=== PATIENT | female | born 1995 | race African-American/Black ===

== ENCOUNTER 2019-02-12 22:36 | Inpatient (IN) | payer OTHER, SELFPAY ==
[2019-02-12] MEDS ORDERED: Lidocaine 1% 50 ML MDV ONE (23:09)
[2019-02-13] MEDS ORDERED: Docusate Sodium 100 MG Cap PO PRN (00:02)
[2019-02-13] MEDS ORDERED: Acetaminophen 325 MG Tab PO PRN (00:02)
[2019-02-13] MEDS ORDERED: Witch Hazel Medicated Pads 40/Jar TOP PRN (00:02)
[2019-02-13] MEDS ORDERED: Benzocaine/Menthol 20%-0.5% Spray 56 GM Canister TOP PRN (00:02)
[2019-02-13] MEDS ORDERED: Simethicone 80 MG Tab.Chew PO PRN (00:02)
--- NOTE | 2019-02-13 00:17 | PCM.DEL ---
L & D Note - General Info Date of Service: 02/12/19 Mother's Due Date: 02/19/19 - Delivery Note Labor: Spontaneous Delivery Outcome: Livebirth Infant Delivery Method: Spontaneous Vaginal Delivery-Single (Precipitous delivery at home.) Delivery Mode: Spontaneous Presentation: Vertex Anesthesia Type: None Laceration: 2nd Degree Suture type: Vicryl Suture size: 3-0 Placenta: Intact, Spontaneous Cord: 3 Vessels Resuscitation Needed: No [place]: Warmed, Roll Used Delivery Comments (Free Text/Narrative):: Patient started having some contractions at home at about 1500 on 02/12/19. Her was at work. They started getting intense about 2100 and she was feeling more pressure. She had called the hospital saying that she was planning on coming in at about 2129. She had a big gush of clearish yellow fluid at about 0 and then felt baby's head coming. She pushed about 4 times and then baby was out. She believes time of delivery was 2144. She dried baby off with a towel that she had and put baby on her chest to keep her warm and called Labor and Delivery and we sent the ambulance out to get her. She reports that baby cried right away. Placenta delivered spontaneously at home. She is GBS positive, but otherwise normal . Baby was breech and then transverse presentation and I had DR. Mcwilliams do an ECV on 01/29/19. When she arrived by ambulance, baby girl was on her chest, skin to skin and in no distress. Fundus was firm, but I did express a good amount of blood clots. I examined the perineum and there was a second degree perineal laceration. I infiltrated the area with 1% lidocaine and then used 3-0 Vicryl to suture in the usual manner. After the repair, I did a bimanual exam and expressed more blood clots. Vital signs were stable. I examined the placenta and it was intact and 3 vessels in the cord. - General Info Date of Service: 02/12/19 Functional Status: Reports: Pain Controlled, Ambulating - Review of Systems General: Reports: No Symptoms HEENT: Reports: No Symptoms Pulmonary: Reports: No Symptoms Cardiovascular: Reports: No Symptoms Gastrointestinal: Reports: No Symptoms Genitourinary: Reports: No Symptoms Musculoskeletal: Reports: No Symptoms Skin: Reports: No Symptoms Neurological: Reports: No Symptoms Psychiatric: Reports: No Symptoms - Patient Data Med Orders - Current: Current Medications Discontinued Medications Lidocaine HCl (Xylocaine 1%) Confirm Administered Dose 50 ml .ROUTE .STK-MED ONE Stop: 02/12/19 23:10 - Exam General: Alert, Oriented, Cooperative, No Acute Distress HEENT: Pupils Reactive, Mucous Membr. Moist/[place] Neck: Supple Lungs: Normal Respiratory Effort Cardiovascular: Regular Rate, Regular Rhythm GI/Abdominal Exam: Soft, No Distention (Female) Exam: Vaginal Bleeding Back Exam: Normal Inspection, Full Range of Motion Extremities: Normal Inspection, No Pedal Edema Skin: Warm, Dry, Intact Psy/Mental Status: Alert, Normal Affect, Normal Mood - Problem List & Annotations (1) Spontaneous vaginal delivery SNOMED Code(s): 330185044 Code(s): O80 - ENCOUNTER FOR FULL-TERM UNCOMPLICATED DELIVERY Status: Acute Current Visit: Yes (2) Group B streptococcal carriage complicating SNOMED Code(s): 555935519807552 Code(s): O99.820 - STREPTOCOCCUS B CARRIER STATE COMPLICATING Status: Acute Current Visit: Yes (3) 39 weeks gestation of SNOMED Code(s): 98195664 Code(s): Z3A.39 - 39 WEEKS GESTATION OF Status: Acute Current Visit: Yes - Problem List Review Problem List Initiated/Reviewed/Updated: Yes - My Orders Last 24 Hours: My Active Orders 02/13/19 00:02 Patient Status [ADT] Routine Activity as Tolerated [RC] PER UNIT ROUTINE Cooling Warming Measures [RC] ASDIRECTED May Shower [RC] ASDIRECTED Up ad Maritza [RC] ASDIRECTED Vital Signs [RC] ASDIRECTED Acetaminophen [Tylenol] 650 mg PO Q4H PRN Benzocaine/Menthol [Dermoplast Pain Relief [place]] See Dose Instructions TOP ASDIRECTED PRN Docusate Sodium [Colace] 100 mg PO BID PRN Ibuprofen [Motrin] 600 mg PO Q4H PRN Simethicone 80 mg PO Q4H PRN Witch Keena [Tucks] 1 pad TOP ASDIRECTED PRN Assess Lochia [WOMSER] Per Unit Routine Assess Uterine Involution [WOMSER] Per Unit Routine Breast Pump [WOMSER] Per Unit Routine Medication Administration Instruction [OM.PC] Routine Perineal Care [OM.PC] Per Unit Routine Sitz Bath [OM.PC] Per Unit Routine Resuscitation Status Routine 02/13/19 00:15 Heat Therapy [OM.PC] PRN 02/13/19 05:11 CBC W/O DIFF,HEMOGRAM [HEME] AM 02/13/19 Breakfast Regular Diet [DIET] 02/14/19 00:15 Heat Therapy [OM.PC] PRN - Assessment Assessment:: Precipitous vaginal delivery at home and then brought to the hospital by ambulance. She is GBS positive. Placenta delivered spontaneously at home and was intact. Bleeding is minimal at this time, but some clots were expressed from the uterus. She had a second degree perineal laceration that was repaired here on her arrival. She plans to breastfeed. - Plan Plan:: 1. Routine care. Watch bleeding and treat with pitocin if needed. At this time, her fundus is firm and bleeding is minimal. Will check CBC in am. 2. support and education.
--- NOTE | 2019-02-13 00:56 | PCM.LDHP ---
L&D History of Present Illness - General Date of Service: 02/12/19 Admit Problem/Dx: Patient Status Order with Admit Dx/Problem 02/13/19 00:02 Patient Status [ADT] Routine Admission Diagnosis/Problem Admission Diagnosis/Problem Spontaneous vaginal delivery Source of Information: Patient History Limitations: Reports: No Limitations - History of Present Illness Introduction:: 23 yo admitted after a precipitous spontaneous vaginal delivery at home. She had started having some contractions about 1500 after her went to work. THey started getting more intense with pelvic pressure at 2100 and she called the hospital to advise that she was going to be coming in, but then she had SROM at home at about 2140 and baby delivered spontaneously at 2145. She delivered a baby girl and then the placenta also delivered spontaneously. She did call L&D during the process and we sent an ambulance to bring her to the hospital. Her was complicated by breech presentation and then transverse and ECV successfully performed by Dr. Mcwilliams on 01/29/19. She is GBS positive and blood type O positive. Infectious disease testing all negative. She did have a low TSH in early , but that normalized. 1 hour glucola was normal. Her first baby delivered with spontaneous vaginal delivery with spontaneous labor and she had a baby boy. - Related Data Allergies/Adverse Reactions: Allergies Allergy/AdvReac Type Severity Reaction Status Date / Time No Known Allergies Allergy Verified 01/29/19 12:03 Home Medications: Home Meds Pnv No.95/Ferrous Fum/Folic AC [ Caplet] 1 tab DAILY 01/29/19 [History] Past Medical History - Past Health History Medical/Surgical History: Denies Medical/Surgical History : 2 Para: 2 Social & Family History - Tobacco Use Smoking Status *Q: Never Smoker Tobacco Use Within Last Twelve Months: No - Alcohol Use Alcohol Use History: No - Living Situation & Occupation Living situation: Reports: H&P Review of Systems - Review of Systems: Review Of Systems: See Below General: Reports: No Symptoms HEENT: Reports: No Symptoms Pulmonary: Reports: No Symptoms Cardiovascular: Reports: No Symptoms Gastrointestinal: Reports: No Symptoms Genitourinary: Reports: Other (Uterine cramping) Musculoskeletal: Reports: No Symptoms Skin: Reports: No Symptoms Psychiatric: Reports: No Symptoms Neurological: Reports: No Symptoms Hematologic/Lymphatic: Reports: No Symptoms Immunologic: Reports: No Symptoms L&D Exam - Exam Exam: See Below - OB Specific Presentation: Vertex - Exam General: Alert, Oriented, Cooperative HEENT: Mucosa Moist & [place], Pupils Equal Neck: Supple, Trachea Midline Lungs: Normal Respiratory Effort Cardiovascular: Regular Rate, Regular Rhythm GI/Abdominal Exam: Soft Rectal Exam: Deferred Genitourinary: Vaginal bleeding, Other (Uterus is firm, with massage, a moderate amount of blood clot expressed.) Back Exam: Normal Inspection, Full Range of Motion Extremities: Normal Inspection, No Pedal Edema Skin: Warm, Dry, Intact Psychiatric: Alert, Normal Affect, Normal Mood - Problem List (1) Spontaneous vaginal delivery SNOMED Code(s): 533213736 ICD Code: O80 - ENCOUNTER FOR FULL-TERM UNCOMPLICATED DELIVERY Status: Acute Current Visit: Yes (2) Group B streptococcal carriage complicating SNOMED Code(s): 054559070285390 ICD Code: O99.820 - STREPTOCOCCUS B CARRIER STATE COMPLICATING Status: Acute Current Visit: Yes (3) 39 weeks gestation of SNOMED Code(s): 18951285 ICD Code: Z3A.39 - 39 WEEKS GESTATION OF Status: Acute Current Visit: Yes Problem List Initiated/Reviewed/Updated: Yes Orders Last 24hrs: Active Orders 24 hr Category Date Time Status Patient Status [ADT] Routine ADT 02/13/19 00:02 Active Activity as Tolerated [RC] PER UNIT ROUTINE Care 02/13/19 00:02 Active Cooling Warming Measures [RC] ASDIRECTED Care 02/13/19 00:02 Active May Shower [RC] ASDIRECTED Care 02/13/19 00:02 Active Up ad Maritza [RC] ASDIRECTED Care 02/13/19 00:02 Active Vital Signs [RC] ASDIRECTED Care 02/13/19 00:02 Active Regular Diet [DIET] Diet 02/13/19 Breakfast Active CBC W/O DIFF,HEMOGRAM [HEME] AM Lab 02/13/19 05:11 Ordered Acetaminophen [Tylenol] Med 02/13/19 00:02 Active 650 mg PO Q4H PRN Benzocaine/Menthol [Dermoplast Pain Relief [place]] Med 02/13/19 00:02 Active See Dose Instructions TOP ASDIRECTED PRN Docusate Sodium [Colace] Med 02/13/19 00:02 Active 100 mg PO BID PRN Ibuprofen [Motrin] Med 02/13/19 00:02 Active 600 mg PO Q4H PRN Simethicone Med 02/13/19 00:02 Active 80 mg PO Q4H PRN Witch Keena [Tucks] Med 02/13/19 00:02 Active 1 pad TOP ASDIRECTED PRN Assess Lochia [WOMSER] Per Unit Routine Oth 02/13/19 00:02 Ordered Assess Uterine Involution [WOMSER] Per Unit Routine Oth 02/13/19 00:02 Ordered Breast Pump [WOMSER] Per Unit Routine Oth 02/13/19 00:02 Ordered Heat Therapy [OM.PC] PRN Oth 02/13/19 00:15 Ordered Heat Therapy [OM.PC] PRN Oth 02/14/19 00:15 Ordered Medication Administration Instruction [OM.PC] Routine Oth 02/13/19 00:02 Ordered Perineal Care [OM.PC] Per Unit Routine Oth 02/13/19 00:02 Ordered Sitz Bath [OM.PC] Per Unit Routine Oth 02/13/19 00:02 Ordered Resuscitation Status Routine Resus Stat 02/13/19 00:02 Ordered Medication Orders Acetaminophen (Tylenol) 650 mg PO Q4H PRN PRN Reason: mild pain or fever Benzocaine/Menthol (Dermoplast Pain Relief [place]) 0 gm TOP ASDIRECTED PRN PRN Reason: Perineal Comfort Measure Docusate Sodium (Colace) 100 mg PO BID PRN PRN Reason: Constipation Ibuprofen (Motrin) 600 mg PO Q4H PRN PRN Reason: Mild pain or fever Simethicone (Simethicone) 80 mg PO Q4H PRN PRN Reason: Gas Witch Keena (Tucks) 1 pad TOP ASDIRECTED PRN PRN Reason: Perineal Comfort Measure Assessment/Plan Comment:: 1. Routine care. Watch bleeding and treat with pitocin if needed. At this time, her fundus is firm and bleeding is minimal. Will check CBC in am. 2. support and education.
[2019-02-13] MEDS: Ibuprofen 600 MG Tab PO PRN ×3 (01:50→23:28)
--- NOTE | 2019-02-13 10:04 | PCM.PN ---
- General Info Date of Service: 02/13/19 Admission Dx/Problem (Free Text): Patient Status Order with Admit Dx/Problem 02/13/19 00:02 Patient Status [ADT] Routine Admission Diagnosis/Problem Admission Diagnosis/Problem Spontaneous vaginal delivery Functional Status: Reports: Pain Controlled, Tolerating Diet, Ambulating, Urinating - Review of Systems General: Reports: No Symptoms HEENT: Reports: No Symptoms Pulmonary: Reports: No Symptoms Cardiovascular: Reports: No Symptoms Gastrointestinal: Reports: No Symptoms Genitourinary: Reports: No Symptoms Musculoskeletal: Reports: No Symptoms Skin: Reports: No Symptoms Neurological: Reports: No Symptoms Psychiatric: Reports: No Symptoms - Patient Data Vitals - Most Recent: Last Vital Signs Temp 36.9 C 02/13/19 08:37 Pulse 98 02/13/19 08:37 Resp 14 02/13/19 08:37 BP 125/63 02/13/19 08:37 Pulse Ox 100 02/13/19 08:37 Weight - Most Recent: 95.254 kg Lab Results Last 24 Hours: Laboratory Results - last 24 hr 02/13/19 Range/Units 05:47 WBC 11.39 H (3.98-10.04) K/mm3 RBC 3.66 L (3.98-5.22) M/mm3 Hgb 11.5 (11.2-15.7) gm/dl Hct 33.5 L (34.1-44.9) % MCV 91.5 (79.4-94.8) fl MCH 31.4 (25.6-32.2) pg MCHC 34.3 (32.2-35.5) g/dl RDW Std Deviation 39.8 (36.4-46.3) fL Plt Count 225 (182-369) K/mm3 MPV 9.7 (9.4-12.3) fl Med Orders - Current: Current Medications Acetaminophen (Tylenol) 650 mg PO Q4H PRN PRN Reason: mild pain or fever Benzocaine/Menthol (Dermoplast Pain Relief [place]) 0 gm TOP ASDIRECTED PRN PRN Reason: Perineal Comfort Measure Last Admin: 02/13/19 01:49 Dose: 1 canister Docusate Sodium (Colace) 100 mg PO BID PRN PRN Reason: Constipation Ibuprofen (Motrin) 600 mg PO Q4H PRN PRN Reason: Mild pain or fever Last Admin: 02/13/19 01:50 Dose: 600 mg Simethicone (Simethicone) 80 mg PO Q4H PRN PRN Reason: Gas Witch Keena (Tucks) 1 pad TOP ASDIRECTED PRN PRN Reason: Perineal Comfort Measure Last Admin: 02/13/19 01:49 Dose: 1 tub Discontinued Medications Lidocaine HCl (Xylocaine 1%) Confirm Administered Dose 50 ml .ROUTE .STK-MED ONE Stop: 02/12/19 23:10 Last Admin: 02/13/19 08:49 Dose: 50 ml - Exam General: Alert, Oriented HEENT: Mucous Membr. Moist/[place] Neck: Supple Lungs: Normal Respiratory Effort Cardiovascular: Regular Rate, Regular Rhythm GI/Abdominal Exam: Normal Bowel Sounds, No Distention (Female) Exam: Normal External Exam, Fundal Height (Uterus is firm at the umbilicus. ), Vaginal Bleeding Back Exam: Normal Inspection, Full Range of Motion Extremities: Normal Inspection, Non-Tender, No Pedal Edema Skin: Warm, Dry, Intact Neurological: No New Focal Deficit Psy/Mental Status: Alert, Normal Affect, Normal Mood - Problem List & Annotations (1) Spontaneous vaginal delivery SNOMED Code(s): 978411930 Code(s): O80 - ENCOUNTER FOR FULL-TERM UNCOMPLICATED DELIVERY Status: Acute Current Visit: Yes (2) Group B streptococcal carriage complicating SNOMED Code(s): 991621818628743 Code(s): O99.820 - STREPTOCOCCUS B CARRIER STATE COMPLICATING Status: Acute Current Visit: Yes (3) 39 weeks gestation of SNOMED Code(s): 91077871 Code(s): Z3A.39 - 39 WEEKS GESTATION OF Status: Acute Current Visit: Yes - Problem List Review Problem List Initiated/Reviewed/Updated: Yes - My Orders Last 24 Hours: My Active Orders 02/13/19 00:02 Patient Status [ADT] Routine Activity as Tolerated [RC] PER UNIT ROUTINE May Shower [RC] ASDIRECTED Up ad Maritza [RC] ASDIRECTED Vital Signs [RC] 21,03,09,15 Acetaminophen [Tylenol] 650 mg PO Q4H PRN Benzocaine/Menthol [Dermoplast Pain Relief [place]] See Dose Instructions TOP ASDIRECTED PRN Docusate Sodium [Colace] 100 mg PO BID PRN Ibuprofen [Motrin] 600 mg PO Q4H PRN Simethicone 80 mg PO Q4H PRN Witch Keena [Tucks] 1 pad TOP ASDIRECTED PRN Assess Lochia [WOMSER] Per Unit Routine Assess Uterine Involution [WOMSER] Per Unit Routine Breast Pump [WOMSER] Per Unit Routine Medication Administration Instruction [OM.PC] Routine Perineal Care [OM.PC] Per Unit Routine Sitz Bath [OM.PC] Per Unit Routine Resuscitation Status Routine 02/13/19 00:15 Heat Therapy [OM.PC] PRN 02/13/19 Breakfast Regular Diet [DIET] 02/14/19 00:15 Heat Therapy [OM.PC] PRN - Assessment Assessment:: Precipitous vaginal delivery at home and then brought to the hospital by ambulance. She is GBS positive. Placenta delivered spontaneously at home and was intact. Bleeding is minimal at this time, but some clots were expressed from the uterus. She had a second degree perineal laceration that was repaired here on her arrival. She plans to breastfeed. 02/13/19: Cramping controlled with ibuprofen, bleeding is slowing. Voiding well. Baby has nursed once at 0400, but was cool and pretty sleepy until then. - Plan Plan:: 1. Routine care. Watch bleeding and treat with pitocin if needed. At this time, her fundus is firm and bleeding is minimal. Will check CBC in am. 2. support and education. 02/13/19: 1. continue routine care. CBC shows Hgb 11.5. 2. support and education.
--- NOTE | 2019-02-14 08:40 | PCM48HPAN ---
Post Anesthesia Note - EVALUATION WITHIN 48HRS OF ANESTHETIC Vital Signs in Normal Range: Yes Patient Participated in Evaluation: Yes Respiratory Function Stable: Yes Airway Patent: Yes Cardiovascular Function Stable: Yes Hydration Status Stable: Yes Pain Control Satisfactory: Yes Nausea and Vomiting Control Satisfactory: Yes Mental Status Recovered: Yes Vital Signs: Last Vital Signs Temp 36.7 C 02/14/19 02:29 Pulse 81 02/14/19 02:29 Resp 16 02/14/19 02:29 BP 108/69 02/14/19 02:29 Pulse Ox 96 02/14/19 02:29 - COMMENTS/OBSERVATIONS Free Text/Narrative:: no anesthesia complications noted
--- NOTE | 2019-02-14 08:53 | PCM.DCSUM1 ---
Discharge Summary - Hospital Course Free Text/Narrative:: 3 yo admitted after a precipitous spontaneous vaginal delivery at home. She had started having some contractions about 1500 after her went to work. THey started getting more intense with pelvic pressure at 2100 and she called the hospital to advise that she was going to be coming in, but then she had SROM at home at about 2140 and baby delivered spontaneously at 2145. She delivered a baby girl and then the placenta also delivered spontaneously. She did call L&D during the process and we sent an ambulance to bring her to the hospital. Her was complicated by breech presentation and then transverse and ECV successfully performed by Dr. Mcwilliams on 01/29/19. She is GBS positive and blood type O positive. Infectious disease testing all negative. She did have a low TSH in early , but that normalized. 1 hour glucola was normal. Her first baby delivered with spontaneous vaginal delivery with spontaneous labor and she had a baby boy. She did have a second degree perineal laceration that I discovered on exam when she presented to the hospital and it was repaired in the usual manner with 3-0 vicryl. Placenta was intact. Her bleeding was moderate and has decreased during her hospital stay. She has been using ibuprofen 600 mg for uterine cramping and that has been helping. She has been ambulating and voiding well and has had a good appetite. She has been waking baby up to breastfeed every 2 hours and baby has been nursing well. Diagnosis: Stroke: No Modified [place] Scale: No Symptoms at All Modified [place] Scale Score: 0 - Discharge Data Discharge Date: 02/14/19 Discharge Disposition: Home, Self-Care 01 Condition: Good - Referral to Home Health Primary Care Physician: Linda Johnston MD - Discharge Diagnosis/Problem(s) (1) Spontaneous vaginal delivery SNOMED Code(s): 313270006 ICD Code: O80 - ENCOUNTER FOR FULL-TERM UNCOMPLICATED DELIVERY Status: Acute Current Visit: Yes (2) Group B streptococcal carriage complicating SNOMED Code(s): 684028400936675 ICD Code: O99.820 - STREPTOCOCCUS B CARRIER STATE COMPLICATING Status: Acute Current Visit: Yes (3) 39 weeks gestation of SNOMED Code(s): 93839663 ICD Code: Z3A.39 - 39 WEEKS GESTATION OF Status: Acute Current Visit: Yes (4) Mother currently breast-feeding SNOMED Code(s): 528305900 ICD Code: [id number] - Status: Acute Current Visit: Yes - Patient Instructions Diet: Regular Diet as Tolerated Activity: As Tolerated Driving: May Drive Today Showering/Bathing: May Shower Notify Provider of: Fever, Increased Pain, Swelling and Redness, Drainage, Nausea and/or Vomiting - Discharge Plan *PRESCRIPTION DRUG MONITORING PROGRAM REVIEWED*: Not Applicable *COPY OF PRESCRIPTION DRUG MONITORING REPORT IN PATIENT CROW: Not Applicable Home Medications: Home Meds Pnv No.95/Ferrous Fum/Folic AC [ Caplet] 1 tab DAILY 01/29/19 [History] Acetaminophen [Tylenol] 650 mg PO Q4H PRN tablet 02/14/19 [Rx] Benzocaine/Menthol [Dermoplast Pain Relief [place]] 1 applic TOP ASDIRECTED PRN canister 02/14/19 [Rx] Docusate Sodium [Colace] 100 mg PO BID PRN cap 02/14/19 [Rx] Ibuprofen [Motrin] 600 mg PO Q4H PRN tablet 02/14/19 [Rx] Witch Keena [Tucks] 1 pad TOP ASDIRECTED PRN pad 02/14/19 [Rx] Oxygen Therapy Mode: Room Air Patient Handouts: Vaginal Delivery, Care After - Discharge Summary/Plan Comment DC Time >30 min.: No Discharge Summary/Plan Comment: 23 yo had a precipitous at home at 39 weeks and was then brought to the hospital with her baby by ambulance. She had a second degree perineal laceration that I repaired. Her placenta delivered spontaneously at home and I examined it and it appeared intact. Her fundus was firm and bleeding minimal to moderate. She has done well and will be discharged with routine instructions. She is and that has been going well. Continue to nurse baby. She will continue her vitamin. I will follow up with her in the clinic in 4-6 weeks. - General Info Date of Service: 02/14/19 Admission Dx/Problem (Free Text: Patient Status Order with Admit Dx/Problem 02/13/19 00:02 Patient Status [ADT] Routine Admission Diagnosis/Problem Admission Diagnosis/Problem Spontaneous vaginal delivery Functional Status: Reports: Pain Controlled, Tolerating Diet, Ambulating, Urinating - Review of Systems General: Reports: No Symptoms HEENT: Reports: No Symptoms Pulmonary: Reports: No Symptoms Cardiovascular: Reports: No Symptoms Gastrointestinal: Reports: No Symptoms Genitourinary: Reports: No Symptoms Musculoskeletal: Reports: No Symptoms Skin: Reports: No Symptoms Neurological: Reports: No Symptoms Psychiatric: Reports: No Symptoms - Patient Data Vitals - Most Recent: Last Vital Signs Temp 36.7 C 02/14/19 02:29 Pulse 81 02/14/19 02:29 Resp 16 02/14/19 02:29 BP 108/69 02/14/19 02:29 Pulse Ox 96 02/14/19 02:29 Weight - Most Recent: 95.254 kg I&O - Last 24 hours: Intake & Output 02/13/19 02/14/19 02/14/19 22:59 06:59 14:59 Intake Total 360 Balance 360 Med Orders - Current: Current Medications Acetaminophen (Tylenol) 650 mg PO Q4H PRN PRN Reason: mild pain or fever Benzocaine/Menthol (Dermoplast Pain Relief [place]) 0 gm TOP ASDIRECTED PRN PRN Reason: Perineal Comfort Measure Last Admin: 02/13/19 01:49 Dose: 1 canister Docusate Sodium (Colace) 100 mg PO BID PRN PRN Reason: Constipation Last Admin: 02/13/19 23:28 Dose: 100 mg Ibuprofen (Motrin) 600 mg PO Q4H PRN PRN Reason: Mild pain or fever Last Admin: 02/13/19 23:28 Dose: 600 mg Simethicone (Simethicone) 80 mg PO Q4H PRN PRN Reason: Gas Witch Keena (Tucks) 1 pad TOP ASDIRECTED PRN PRN Reason: Perineal Comfort Measure Last Admin: 02/13/19 01:49 Dose: 1 tub Discontinued Medications Lidocaine HCl (Xylocaine 1%) Confirm Administered Dose 50 ml .ROUTE .STK-MED ONE Stop: 02/12/19 23:10 Last Admin: 02/13/19 08:49 Dose: 50 ml - Exam General: Reports: Alert, Oriented, Cooperative, No Acute Distress HEENT: Reports: Pupils Equal, Pupils Reactive, Mucous Membr. Moist/[place] Neck: Reports: Supple Lungs: Reports: Normal Respiratory Effort Cardiovascular: Reports: Regular Rate, Regular Rhythm GI/Abdominal Exam: Normal Bowel Sounds (Female) Exam: Normal External Exam, Fundal Height (Fundus was initially at the umbilicus, but came down to 2 fingers below U with massage), Vaginal Bleeding Rectal (Female) Exam: Deferred Back Exam: Reports: Normal Inspection, Full Range of Motion Extremities: Normal Inspection, Normal Range of Motion, No Pedal Edema Skin: Reports: Warm, Dry, Intact Wound/Incisions: Reports: Healing Well Neurological: Reports: No New Focal Deficit Psy/Mental Status: Reports: Alert, Normal Affect, Normal Mood
[2019-02-14] MEDS: Ibuprofen 600 MG Tab PO PRN (20:17)
== END 2019-02-14 23:30 | disposition home or self-care (01) | DRG 807 ==
LOC: JD.OB 22:36
PROVIDERS: ADMIT Family Medicine; ATTEND Family Medicine
PROC: 10E0XZZ Delivery of Products of Conception, External Approach (ICD-10-PCS; principal; 2019-02-12)
DX: O62.3 Precipitate labor (principal); Z37.0 Single live birth; O99.824 Streptococcus B carrier state complicating childbirth; Z3A.39 39 weeks gestation of pregnancy; Z79.899 Other long term (current) drug therapy; O70.1 Second degree perineal laceration during delivery
CPT/HCPCS: 36415; 85027; A9270-GY; J2001

== ENCOUNTER 2020-09-08 09:32 | Emergency (ER) | payer OTHER, SELFPAY ==
[2020-09-08] MEDS ORDERED: Sodium Chloride 0.9% 10 ML Syringe FLUSH PRN (10:02)
[2020-09-08] MEDS ORDERED: methylPREDNISolone Sodium Succinate 125 MG/2 ML SDV IVPUSH ONE (10:03)
[2020-09-08] MEDS ORDERED: Ketorolac 30 MG/ML SDV IVPUSH ONE (10:04)
--- NOTE | 2020-09-08 11:38 | EDM.PDOC ---
ED HPI GENERAL MEDICAL PROBLEM - General Chief Complaint: ENT Problem Stated Complaint: CHEST PAIN/ COUGHING UP BLOOD Time Seen by Provider: 09/08/20 09:41 Source of Information: Reports: Patient History Limitations: Reports: No Limitations - History of Present Illness INITIAL COMMENTS - FREE TEXT/NARRATIVE: The patient presents with a sore throat and vomiting blood. When she went to bed last night she felt fine. This morning she woke up with sore throat and swelling. She also had some nausea and vomiting dome blood. She feels some shortness of breath. She has no fever, chills, cough, congestion, runny nose, or chest pain. She has not been around anyone who is sick. She has no history of strep throat. She has no allergies. 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: Social & Family History - Tobacco Use Tobacco Use Status *Q: Never Tobacco User Second Hand Smoke Exposure: No - Caffeine Use Caffeine Use: Reports: None - Recreational Drug Use Recreational Drug Use: No - Living Situation & Occupation Living situation: Reports: ED ROS ENT - Review of Systems Review Of Systems: See Below Constitutional: Reports: No Symptoms HEENT: Reports: Throat Pain, Throat Swelling Respiratory: Reports: No Symptoms Cardiovascular: Reports: No Symptoms Endocrine: Reports: No Symptoms GI/Abdominal: Reports: No Symptoms : Reports: No Symptoms ED EXAM, ENT - Physical Exam Exam: See Below Exam Limited By: No Limitations General Appearance: Alert, No Apparent Distress Ears: Normal External Exam Mouth/Throat: Other (Uvula has edema and the tip has a scab where there has been some bleeding) Head: Atraumatic, Normocephalic Neck: Normal Inspection, Supple, Non-Tender Respiratory/Chest: No Respiratory Distress, Lungs Clear, Normal Breath Sounds Cardiovascular: Regular Rate, Rhythm, No Edema, No Murmur GI/Abdominal: Soft, Non-Tender, No Organomegaly, No Mass Back: Normal Inspection Extremities: Normal Inspection #1 Interpretation EKG Date: 09/08/20 Time: 09:40 Rhythm: NSR Rate (Beats/Min): 75 [place]: Normal P-Wave: Present QRS: Normal ST-T: Normal QT: Normal Course - Vital Signs Last Recorded V/S: Last Vital Signs Temp 96.1 F L 09/08/20 09:37 Pulse 81 09/08/20 09:37 Resp 16 09/08/20 09:37 BP 133/86 09/08/20 09:37 Pulse Ox 97 09/08/20 09:37 - Orders/Labs/Meds Orders: Active Orders 24 hr Category Date Time Status Cardiac Monitoring [RC] . DIRECTED Care 09/08/20 10:02 Active EKG 12 Lead [EKG Documentation Completion] [RC] STAT Care 09/08/20 09:41 Active Peripheral IV Care [RC] . DIRECTED Care 09/08/20 10:02 Active Sodium Chloride 0.9% [Saline Flush] Med 09/08/20 10:02 Active 10 ml FLUSH ASDIRECTED PRN Peripheral IV Insertion Adult [OM.PC] Stat Oth 09/08/20 10:02 Ordered Medication Orders Sodium Chloride (Sodium Chloride 0.9% 10 Ml Syringe) 10 ml FLUSH ASDIRECTED PRN PRN Reason: Keep Vein Open Last Admin: 09/08/20 10:12 Dose: 10 ml Documented by: TAMERA Labs: Laboratory Tests 09/08/20 09/08/20 09/08/20 Range/Units 09:40 09:40 09:40 WBC 3.83 L (3.98-10.04) K/mm3 RBC 4.10 (3.98-5.22) M/mm3 Hgb 11.9 (11.2-15.7) gm/dl Hct 36.2 (34.1-44.9) % MCV 88.3 (79.4-94.8) fl MCH 29.0 (25.6-32.2) pg MCHC 32.9 (32.2-35.5) g/dl RDW Std Deviation 40.1 (36.4-46.3) fL Plt Count 282 (182-369) K/mm3 MPV 9.8 (9.4-12.3) fl Neut % (Auto) 29.3 L (34.0-71.1) % Lymph % (Auto) 59.3 H (19.3-51.7) % [place] % (Auto) 9.9 (4.7-12.5) % Eos % (Auto) 1.0 (0.7-5.8) Baso % (Auto) 0.5 (0.1-1.2) % Neut # (Auto) 1.12 L (1.56-6.13) K/mm3 Lymph # (Auto) 2.27 (1.18-3.74) K/mm3 [place] # (Auto) 0.38 H (0.24-0.36) K/mm3 Eos # (Auto) 0.04 (0.04-0.36) K/mm3 Baso # (Auto) 0.02 (0.01-0.08) K/mm3 Sodium 142 (136-145) mEq/L Potassium 3.9 (3.5-5.1) mEq/L Chloride 108 H (98-107) mEq/L Carbon Dioxide 23 (21-32) mEq/L Anion Gap 14.9 (5-15) BUN 11 (7-18) mg/dL Creatinine 0.8 (0.55-1.02) mg/dL Est Cr Clr Drug Dosing 99.76 mL/min Estimated GFR (MDRD) > 60 (>60) mL/min BUN/Creatinine Ratio 13.8 L (14-18) Glucose 100 H (70-99) mg/dL Calcium 8.6 (8.5-10.1) mg/dL Total Bilirubin 0.4 (0.2-1.0) mg/dL AST 28 (15-37) U/L ALT 38 (14-59) U/L Alkaline Phosphatase 69 (46-116) U/L Total Protein 7.1 (6.4-8.2) g/dl Albumin 3.6 (3.4-5.0) g/dl Globulin 3.5 gm/dL Albumin/Globulin Ratio 1.0 (1-2) Monoscreen Negative (NEGATIVE) Group A Strep (PCR) (NOT DETECT) 09/08/20 Range/Units 10:47 WBC (3.98-10.04) K/mm3 RBC (3.98-5.22) M/mm3 Hgb (11.2-15.7) gm/dl Hct (34.1-44.9) % MCV (79.4-94.8) fl MCH (25.6-32.2) pg MCHC (32.2-35.5) g/dl RDW Std Deviation (36.4-46.3) fL Plt Count (182-369) K/mm3 MPV (9.4-12.3) fl Neut % (Auto) (34.0-71.1) % Lymph % (Auto) (19.3-51.7) % [place] % (Auto) (4.7-12.5) % Eos % (Auto) (0.7-5.8) Baso % (Auto) (0.1-1.2) % Neut # (Auto) (1.56-6.13) K/mm3 Lymph # (Auto) (1.18-3.74) K/mm3 [place] # (Auto) (0.24-0.36) K/mm3 Eos # (Auto) (0.04-0.36) K/mm3 Baso # (Auto) (0.01-0.08) K/mm3 Sodium (136-145) mEq/L Potassium (3.5-5.1) mEq/L Chloride (98-107) mEq/L Carbon Dioxide (21-32) mEq/L Anion Gap (5-15) BUN (7-18) mg/dL Creatinine (0.55-1.02) mg/dL Est Cr Clr Drug Dosing mL/min Estimated GFR (MDRD) (>60) mL/min BUN/Creatinine Ratio (14-18) Glucose (70-99) mg/dL Calcium (8.5-10.1) mg/dL Total Bilirubin (0.2-1.0) mg/dL AST (15-37) U/L ALT (14-59) U/L Alkaline Phosphatase (46-116) U/L Total Protein (6.4-8.2) g/dl Albumin (3.4-5.0) g/dl Globulin gm/dL Albumin/Globulin Ratio (1-2) Monoscreen (NEGATIVE) Group A Strep (PCR) Not detected (NOT DETECT) Meds: Medications Generic Name Dose Route Start Last Admin Trade Name Frealmaz PRN Reason Stop Dose Admin Sodium Chloride 10 ml 09/08/20 10:02 09/08/20 10:12 Sodium Chloride 0.9% 10 Ml Syringe FLUSH 10 ml ASDIRECTED PRN Administration Keep Vein Open Discontinued Medications Generic Name Dose Route Start Last Admin Trade Name Freq PRN Reason Stop Dose Admin Ketorolac Tromethamine 30 mg 09/08/20 10:04 09/08/20 10:12 Ketorolac 30 Mg/Ml Sdv IVPUSH 09/08/20 10:05 30 mg ONETIME ONE Administration Methylprednisolone Sodium Succinate 125 mg 09/08/20 10:03 09/08/20 10:11 Methylprednisolone Sodium Succinate 125 Mg/2 Ml Sdv IVPUSH 09/08/20 10:04 125 mg ONETIME ONE Administration - Re-Assessments/Exams Free Text/Narrative Re-Assessment/Exam: 09/08/20 11:36 I ordered an IV saline lock, EKG, labs and a strep. Her EKG shows a NSR with no acute changes. 09/08/20 11:37 Her labs show a low WBC of 3.83. Her CMP looks good. Her mono and group A str ep is negative. I feel this could be a viral pharyngitis. Departure - Departure Time of Disposition: 11:45 Disposition: Home, Self-Care 01 Condition: Good Clinical Impression: Uvular edema Pharyngitis Qualifiers: Pharyngitis/tonsillitis etiology: other specified organisms Qualified Code(s): J02.8 - Acute pharyngitis due to other specified organisms - Discharge Information *PRESCRIPTION DRUG MONITORING PROGRAM REVIEWED*: Not Applicable *COPY OF PRESCRIPTION DRUG MONITORING REPORT IN PATIENT CROW: Not Applicable Prescriptions: predniSONE [Prednisone] 40 mg PO DAILY #10 tablet Referrals: Linda Johnston MD [Primary Care Provider] - 1 Week Forms: ED Department Discharge, ED Return to Work/School Form Additional Instructions: Drink plenty of fluids. Take the prednisone daily for 5 days. Take tylenol or motrin for any pain. Please return if you are worse. Sepsis Event Note (ED) - Evaluation Sepsis Screening Result: No Definite Risk - Focused Exam Vital Signs: Vital Signs Temp Pulse Resp BP Pulse Ox 09/08/20 09:37 96.1 F L 81 16 133/86 97 - My Orders Last 24 Hours: My Active Orders 09/08/20 09:41 EKG 12 Lead [EKG Documentation Completion] [RC] STAT 09/08/20 10:02 Cardiac Monitoring [RC] . DIRECTED Peripheral IV Care [RC] . DIRECTED Sodium Chloride 0.9% [Saline Flush] 10 ml FLUSH ASDIRECTED PRN Peripheral IV Insertion Adult [OM.PC] Stat - Assessment/Plan Last 24 Hours: My Active Orders 09/08/20 09:41 EKG 12 Lead [EKG Documentation Completion] [RC] STAT 09/08/20 10:02 Cardiac Monitoring [RC] . DIRECTED Peripheral IV Care [RC] . DIRECTED Sodium Chloride 0.9% [Saline Flush] 10 ml FLUSH ASDIRECTED PRN Peripheral IV Insertion Adult [OM.PC] Stat
== END 2020-09-08 11:56 | disposition home or self-care (01) ==
LOC: JD.ED 09:32
DX: J02.8 Acute pharyngitis due to other specified organisms (principal); R60.0 Localized edema
CPT/HCPCS: 36415; 80053; 85025; 86308; 87651; 93005; 96374; 96375; 99284; J1885; J2930; 93010